=== PATIENT | male | born 1940 | race Caucasian/White ===

== ENCOUNTER 2016-07-07 13:34 | Inpatient (IN) | payer MEDICARE, BC ==
[~2016-07-07] VITALS: Ht 177.8 cm; Wt 97.8 kg
--- NOTE | ~2016-07-07 | OR ---
PATIENT'S NAME: PALMA MEJIA [facility] AGE: 76 Y [address] ROOM: [id number] [place], [place] [address] [place] [facility] [place]: 07/08/2016 OR/Procedure Report DISCHARGE DATE: FAMILY PHYSICIAN: CIRILO LUIS MD (ALMA) ATTENDING PHYSICIAN: Qian Grajeda SURGEON: Qian Grajeda MD SLEEVE SETTER SAFETY STITCH: Dr. Crisostomo. DATE OF PROCEDURE: 07/08/2016 PREOPERATIVE DIAGNOSIS: Right renal mass with probable renal cell carcinoma. POSTOPERATIVE DIAGNOSIS: Right renal mass with probable renal cell carcinoma with a renal cell carcinoma confirmed on preliminary pathology. PROCEDURE: Right radical nephrectomy with regional lymphadenectomy. ANESTHESIA: General plus epidural. INDICATION: This is a 76-year-old gentleman with an incidental right renal mass. He had a scan of his back and right renal tumor was noted. He then underwent a dedicated CT scan. He has a right renal mass which is a renal cell carcinoma until proven otherwise. It is 6 cm in greatest dimension. The left kidney is unremarkable. He does have a small indeterminate pulmonary lesion. Metastatic survey was otherwise negative. He presents at this time for right radical nephrectomy. DESCRIPTION OF PROCEDURE: Having obtained his informed consent, the patient was taken to the operating room. He was prepped and draped sterilely and in a modified right flank position. He rolled up approximately 20 degrees. General anesthesia has been administered and he does have an epidural catheter in place for postoperative pain management. An 11th rib incision was made. The 11th rib was resected distally. We entered the retroperitoneum. We extended our incision anteromedially. We entered the perineum without incident. We mobilized the colon anteromedially. We then freed up the ureter and the gonadal vessels. Those were crossclamped, ligated, and divided. We came around the posterior, freeing up the attachments. We took down the reflection below the liver. We now have room to get the Bookwalter retractor in place. The Bookwalter retractor was placed. I then followed the gonadal up and we cleaned off the cava. Duodenum has been mobilized. The artery and vein are identified. I put a right angle clamp across the artery and a pedicle clamp across the larger vein. They were divided. We then came across leaving the adrenal gland in place and removed the specimen. The specimen was sent to pathology. Dr. Jim was in contact informing me that this appears to be a renal cell carcinoma on a preliminary study. PATIENT'S NAME: PALMA MEJIA [facility] AGE: 76 Y [address] ROOM: [address] [address] [place] [facility] [place]: 07/08/2016 OR/Procedure Report DISCHARGE DATE: FAMILY PHYSICIAN: CIRILO LUIS MD (ALMA) ATTENDING PHYSICIAN: Qian Grajeda The right adrenal gland is taken and now we have better exposure. I clipped along the cava and remove the right adrenal gland. That was sent separately for pathology. We cleaned off the vena cava to approximately 8 cm inferior to the hilum. We sent caval and hilar tissue for nodes. Antibiotic irrigation was undertaken. A check was made for hemostasis. The wound was then closed in layers. The patient tolerated the procedure well. Blood loss was estimated at 300 mL. No blood was replaced. The patient was returned to the recovery area awake and stable condition. QIAN GRAJEDA MD [facility]/modl /[id number] CC: MD CIRILO Izaguirre MD (ALMA) d: 07/08/16 1128 t: 07/29/16 0632, OPERATIVE SUMMARY
--- NOTE | ~2016-07-07 | DS ---
PATIENT'S NAME: PALMA MEJIA [facility] AGE: 76 Y [address] ROOM: [place] [address] LOCATION: [facility] [place] DATE: 07/08/2016 Discharge Summary DISCHARGE DATE: 07/13/2016 FAMILY PHYSICIAN: CIRILO LUIS MD (ALMA) ATTENDING PHYSICIAN: Qian Grajeda REASON FOR ADMISSION: Right renal cell carcinoma. OTHER DIAGNOSES: 1. Insulin-dependent diabetes. 2. Hypertension. 3. Hyperlipidemia. 4. Rheumatoid arthritis. SURGICAL PROCEDURE: Right radical nephrectomy with regional lymphadenectomy on 07/08/2016. REASON FOR HOSPITALIZATION: This is a 76-year-old gentleman with a right renal mass. He was admitted at this time for surgery. For complete details of his past history and physical exam, refer the dictated record. 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 He was given a pathologic stage as T1b. CBC was unremarkable postoperatively. Glucoses were followed appropriately by the hospitalist service. After a nephrectomy, his creatinine was stable at 1.3 to 1.4. HOSPITAL COURSE: The patient was admitted for the indications noted above. After preoperative preparation, he underwent the above-noted surgery. He tolerated it well. His postoperative course was unremarkable. His diabetes, hypertension, etc., were followed nicely by the hospitalists. He was advanced slowly on his diet. His incision did nicely. On postoperative day 5, he was felt ready for discharge and follow up as an outpatient. DISPOSITION: The patient was dismissed home in stable condition. Resume his usual diet and activity with instructions do no heavy lifting or straining. Discharge medications are as at admission. He will be seen in one week for staple removal. I will see him in 3 to 4 weeks for his first postoperative visit. He will be in touch in the meantime if he has any questions or concerns. QIAN GRAJEDA MD PATIENT'S NAME: PALMA MEJIA [facility] AGE: 76 Y [address] ROOM: [place] [address] LOCATION: [facility] [place] DATE: 07/08/2016 Discharge Summary DISCHARGE DATE: 07/13/2016 FAMILY PHYSICIAN: CIRILO LUIS MD ([facility]MA) ATTENDING PHYSICIAN: iQan Grajeda/dominicl /[id number] CC: CIRILO LUIS MD (ALMA) d: 07/29/16 1103 t: 08/05/16 1024, DISCHARGE SUMMARY
[2016-07-07] MEDS ORDERED: GLUCOPHAGE1000 MG PO (14:28)
[2016-07-07] MEDS ORDERED: ZOCOR20 MG PO (14:28)
[2016-07-07] MEDS ORDERED: DELTASONE5 MG PO (14:29)
[2016-07-07] MEDS ORDERED: LOSARTAN POTASS50 MG PO (14:29)
[2016-07-07] MEDS ORDERED: LANTUS SOL100 UNIT/1 SUB-Q ×2 (14:31→14:32)
[2016-07-07] MEDS ORDERED: ASPIRIN EC81 MG PO (14:33)
[2016-07-07] MEDS ORDERED: VITAMIN D35000 UNI1 PO (14:35)
[2016-07-07] MEDS ORDERED: FISH OIL + D31 EACH PO (14:35)
[2016-07-07] MEDS ORDERED: XELJANZ XR11 MG PO (14:36)
[2016-07-07] MEDS ORDERED: ULTRAM50 MG PO (14:37)
--- NOTE | 2016-07-08 19:09 | NUR ---
Significant event: received from pacu post right radical nephrectomy. Family at bedside. Accucheck 83, no insulin. Did take some full liquids and had emesis, Zofran given. Dressing to right side has old shadow drainage small amount. Epidural intact. Monsivais draining clear yellow urine. Rates pain 0 and 8 reports has pain to back and normally has that at home. Repositioned several times.
[2016-07-09 06:15] LABS: BASOPHIL % 0.3 %; HEMATOCRIT 37.3 % (37.0-53.0); HEMOGLOBIN 12.3 g/dL (11.0-16.0); IMMATURE GRANULOCYTE % 0.3 %; LYMPHOCYTE # 0.5 K/uL (0.8-4.0); LYMPHOCYTE % 4.3 %; MCV 97.1 fl (83.0-98.0); MONOCYTE # 1.1 K/uL (0.0-1.0); MONOCYTE % 8.8 %; MPV 9.2 fl (9.4-12.4); NEUTROPHIL # (ANC) 10.6 K/uL (1.4-9.0); NEUTROPHIL % 86.3 %; NRBC % 0 /100WBC (0-0.00); PLATELET COUNT 221 K/uL (150-450); RBC 3.84 M/uL (3.50-5.50); RDW-CV 13.6 % (11.9-14.6); WBC 12.3 K/uL (4.0-11.0)
[2016-07-09 06:29] LABS: ANION GAP 10.3 (10.0-19.0); CREATININE 1.4 mg/dL (0.6-1.3); POTASSIUM 4.3 mMol/L (3.7-5.1)
--- NOTE | 2016-07-09 07:07 | NUR ---
Significant Event: Patient alert and roietned X4. Vitals stable and on 2 liters oxygen. ETCO2 monitor on. epidural with 4ml cont/2 demand and 20min lockout. Monsivais in place. Having blood sugar issues. Gave Dextrose 50% X2. Not able to tolerate liquids at this time. notiified. Repositoin often. Cooperaive with cares. Follow up:
--- NOTE | 2016-07-09 19:45 | NUR ---
Significant Event: Patient in bed and repositioned this a.m. but did get up in the chair at 1445 and then back to bed at 1730. Tolerated being up well but needs much encouragement to use incentive spirometer and to move and reposition. Epidural intact to mid-back. Patient only on 1 liter of oxygen. Monsivais intact and patent draining clear yellow urine and had 800 ml out. Diet has been mostly restricted to ice chips due to distended abdomen and nausea. Patient did get 3 bites of ice cream at lunch but then didn't want any more. Family encouraged to stick with ice chips and sips of water at this time. and daughter at bedside and are attentive to patient's needs. Did get a fan for patient as he was warm this afternoon. Follow up: Continue to monitor.
[2016-07-10 06:47] LABS: ANION GAP 14.7 (10.0-19.0); CALCIUM 8.8 mg/dL (8.5-10.5); CREATININE 1.3 mg/dL (0.6-1.3)
[2016-07-10 06:48] LABS: POTASSIUM 4.7 mMol/L (3.7-5.1)
--- NOTE | 2016-07-10 06:55 | NUR ---
Significant Event: Pt alert and Oriented x3. pt refused to walk at begging of shift but did walk to bedside commode x1. afebrile. small emesis Zofran given x2, with relief. Epidural intact, 05/19/19. garcia intact with 800 ML out. slept on and off through out the night. ween off 02. Accuchecks q4hr. at bedside. Follow up:
--- NOTE | 2016-07-10 16:54 | NUR ---
SPOKE TO PATIENT'S SPOUSE NANCY AT THE BEDSIDE. PATIENT IS SLPEEING. INTRODUCED CM AND OUR ROLE. NANCY IS HOPING THAT ONCE PALMA IS READY FOR DISCHARGE HE WILL GO HOME. SHE REPORTS THAT IF HE NEEDS TO HAVE MORE CARE THAN SHE CAN PROVIDE SHE WOULD LIKE FOR PALMA TO GO TO THE [facility] AND THAT IS WHERE SHE WORKS. BUT HER GOAL IS FOR HIM TO GO HOME. WILL CONT TO FOLLOW NEEDED.
--- NOTE | 2016-07-10 17:07 | NUR ---
AAOx3. Cooperative with cares. Very sleepy, but rouses easily. states he is like this at home also. Fent/Ropiv Epidural @05/19/19 w/15 demands, 12 deliveries. Encourage IS. BS Q4hrs. S/L'd bilat PIVs. Monsivais draining yellow urine. Surgical site to right abdomen/flank stapled, well approximated w/scant drainage. Up to BR and chair today. Ambulating well with 1 assist, GB, walker. Active bowel sounds, but no BM yet. No emesis today. Tolerated clears in small amounts. Encouraged to continue to take in PO and advance as he feels able. VSS, afebrile, on RA.
[2016-07-11 05:01] LABS: ANION GAP 18.8 (10.0-19.0); CALCIUM 8.8 mg/dL (8.5-10.5); CREATININE 1.4 mg/dL (0.6-1.3); POTASSIUM 4.8 mMol/L (3.7-5.1)
--- NOTE | 2016-07-11 05:39 | NUR ---
Significant Event: Pt drowsy beginning of shift. Anesthesia in to see pt and DC epidural. Gave norco x 2 with the last dose at 0230, Nucynta at 2310, Morphine at 0030 and 0308. Ambulated in kent x 2 and tolerated well. Gave zofran beginning of shift and no nausea since. BP and pulse elevated with pain, md notified and no new orders recieved. Follow up:
--- NOTE | 2016-07-11 18:07 | NUR ---
AAOx3. Cooperative with cares. Up w/SBA, GB, walker. Ambulated in hallways x3 today. Showered. Up to chair. BS still Q4hrs. Levemir scheduled. VSS, afebrile, on RA. Gave Crary 2tabs last @1800. Had Toradol x1 today, and Morphine IV x1 this a.m. Also Reglan IM this a.m. Right flank incision open to air stapled, well approximated; reddened. Monsivais pulled at 1000. Voided x2 today one not measured and 125ml. Tolerating small amounts of ADA diet. Taking pills ok. No report of nausea all day.
[2016-07-12 05:14] LABS: ALBUMIN 2.5 gm/dL (3.5-5.0); ANION GAP 11.2 (10.0-19.0); CALCIUM 8.5 mg/dL (8.5-10.5); CREATININE 1.3 mg/dL (0.6-1.3); MAGNESIUM 2.4 mg/dL (1.8-2.6); POTASSIUM 4.2 mMol/L (3.7-5.1)
[2016-07-12 05:15] LABS: PHOSPHORUS 1.4 mg/dL (2.5-4.9)
--- NOTE | 2016-07-12 07:36 | NUR ---
Significant Event:pt is a/o x3. pt has incision to r side that is open to air. pt is a 1 assist w/ walker. iv to l hand has 1/2 ns @ 35ml/hr. pt is accuchecks q 4hrs bs were 237, 196 and 181, pt got 2 units for the first no further insulin given per mild scale. pt had minimal c/o painand no prn pain meds given. Follow up:
--- NOTE | 2016-07-12 08:43 | NUR ---
A - PT SCREENED D/T LOS. PT W/ R) FLANK INCISION. NA+ 134, GLU 174, BUN/ASSOCIATE PROFESSOR OF RADIOLOGY 23/1.3, ALB 2.5. MEDS REVIEWED. DIET: DIABETIC W/ INTAKE REFUSED TO 50%. EST NEEDS: [id number] KCALS, 90-113 GM PROTEIN, 1 ML/KCAL FLUIDS. D - INADEQUATE ORAL INTAKE R/T DECREASED APPETITE AEB INTAKE RECORD. I - GOAL: 50% OR BETTER INTAKE BY NEXT REVIEW. M/E - WILL OFFER GLUCERNA BID W/ MEALS AND F/U IN 2-4 DAYS.
[2016-07-12 17:20] LABS: BASOPHIL % 0.2 %; EOSINOPHIL # 0.1 K/uL (0.0-0.5); EOSINOPHIL % 0.7 %; HEMATOCRIT 37.3 % (37.0-53.0); HEMOGLOBIN 12.3 g/dL (11.0-16.0); IMMATURE GRANULOCYTE % 0.5 %; LYMPHOCYTE # 0.8 K/uL (0.8-4.0); LYMPHOCYTE % 8.7 %; MCH 31.3 pg (27.0-34.0); MCV 94.9 fl (83.0-98.0); MONOCYTE % 11.8 %; MPV 9.2 fl (9.4-12.4); NEUTROPHIL # (ANC) 6.9 K/uL (1.4-9.0); NEUTROPHIL % 78.1 %; NRBC % 0 /100WBC (0-0.00); RBC 3.93 M/uL (3.50-5.50); RDW-CV 13.1 % (11.9-14.6); WBC 8.8 K/uL (4.0-11.0)
[2016-07-12 17:22] LABS: PLATELET COUNT 295 K/uL (150-450)
--- NOTE | 2016-07-12 18:58 | NUR ---
Significant Event: Patient oriented x3, very sleepy. Vital signs stable, room air. R) incision mya intact, open to air. Ambulates 1PA with walker. q 6 hr accuchecks. Decreased appetite. PRN zofran x2. PRN tylenol x1. MD order for no narcotics. Sodium phosphate x2 bags. LR at 150mL/hr x1.5 L. Passing flatus, no stool. at bedside. Follow Up: Monitor drowsiness. Urology signed off case.
--- NOTE | 2016-07-12 19:15 | NUR ---
I HAVE REVIEWED AGREE WITH CHARTING COMPLETED BY [facility] STUDENT MARK LIZ FROM [phone] JENNIFER SON
[2016-07-13 04:36] LABS: BASOPHIL % 0.3 %; EOSINOPHIL # 0.1 K/uL (0.0-0.5); HEMATOCRIT 34.5 % (37.0-53.0); HEMOGLOBIN 11.5 g/dL (11.0-16.0); IMMATURE GRANULOCYTE % 0.4 %; LYMPHOCYTE # 0.9 K/uL (0.8-4.0); MCH 31.5 pg (27.0-34.0); MCHC 33.3 gm/dL (32.0-36.5); MCV 94.5 fl (83.0-98.0); MONOCYTE # 0.9 K/uL (0.0-1.0); MONOCYTE % 11.9 %; MPV 9.5 fl (9.4-12.4); NEUTROPHIL # (ANC) 5.8 K/uL (1.4-9.0); NEUTROPHIL % 74.4 %; NRBC % 0 /100WBC (0-0.00); PLATELET COUNT 279 K/uL (150-450); RBC 3.65 M/uL (3.50-5.50); RDW-CV 13.1 % (11.9-14.6); WBC 7.7 K/uL (4.0-11.0)
--- NOTE | 2016-07-13 04:52 | NUR ---
Significant Event:pt is a/o x3. incision to r side w/ mya is open to air. pt will have 1/2 ns @ 35 to l hand . pt recieved tylenol x2 last night last @ 0249. q 6 hrs accucheck, 2300 was 165, no ss given. vss. Follow up:labs in am, possible discharge home today.
[2016-07-13 04:57] LABS: ANION GAP 11.8 (10.0-19.0); CALCIUM 8.3 mg/dL (8.5-10.5); CREATININE 1.3 mg/dL (0.6-1.3); POTASSIUM 3.8 mMol/L (3.7-5.1)
[2016-07-13] MEDS ORDERED: NORCO 5-325 TA1 EACH PO (16:53)
--- NOTE | 2016-07-13 19:33 | NUR ---
I HAVE REVIEWED AND AGREE WITH CHARTING COMPLETED BY [facility] STUDENT MARK LIZ FROM [phone] JENNIFER SON
--- NOTE | 2016-08-01 11:24 | NUR ---
Doing well. Aware of follow up appointments and changes in medications. Eating well. Still feels a little weak but doing better everyday.
== END 2016-07-13 17:36 | disposition disaster alternative care site (69) | DRG 658 ==
LOC: GPOC 13:34 → GMSU 07-08 05:15 → EDSTATUS 07-08 14:00 → GMSU 07-13 17:36
PROVIDERS: Internal Medicine; Physician Assistant; ADMIT Urology
DX: C64.1 Malignant neoplasm of right kidney, except renal pelvis (principal); E11.649 Type 2 diabetes mellitus with hypoglycemia without coma; M06.9 Rheumatoid arthritis, unspecified; E66.9 Obesity, unspecified; E78.5 Hyperlipidemia, unspecified; R91.1 Solitary pulmonary nodule; M79.1 Myalgia; M62.40 Contracture of muscle, unspecified site; I10 Essential (primary) hypertension; Z79.82 Long term (current) use of aspirin; Z79.84 Long term (current) use of oral hypoglycemic drugs; Z79.52 Long term (current) use of systemic steroids; Z86.718 Personal history of other venous thrombosis and embolism; Z68.30 Body mass index [BMI] 30.0-30.9, adult
CPT/HCPCS: J0690; J1720; J1885; J2001; J2250; J2270; J2405; J2765; J2930; J3010; J7030; J7050; J7120; J7512